=== PATIENT | male | born 1985 | race African-American/Black ===

== ENCOUNTER 2021-02-10 02:24 | Emergency (ER) | payer MEDICAID ==
[~2021-02-10] VITALS: Ht 170.2 cm; Wt 59.0 kg
[~2021-02-10 02:24] MED LIST: DILANTIN; FOLIC ACID; HYDROXYUREA
[2021-02-10 02:44] VITALS: BP 118/30
[2021-02-10] MEDS ORDERED: KETOROLAC 60MG/2ML VIAL IM ONE (02:45)
[2021-02-10] MEDS ORDERED: HYDROCODONE/ACETAMINOPHEN 10/325MG TABLET PO ONE (02:45)
[2021-02-10 03:01] LABS: HEMATOCRIT 26.2 % (42.0-52.0); HEMOGLOBIN 9.1 g/dL (14.0-18.0); MEAN CORPUSCULAR VOLUME 86.5 fL (80.0-94.0); PLATELET 476 x1000/uL (130-400); RED BLOOD CELL COUNT 3.03 mill/uL (4.7-6.1); RED CELL DISTRIBUTION WIDTH 20.2 % (11.6-14.6)
[2021-02-10 03:06] LABS: CHLORIDE 109 mEq/L (98-107)
== END 2021-02-10 03:13 | disposition home or self-care (01) ==
LOC: ER 02:24
DX: D57.00 Hb-SS disease with crisis, unspecified (principal); J45.909 Unspecified asthma, uncomplicated; F19.21 Other psychoactive substance dependence, in remission
CPT/HCPCS: 36415; 80053; 85027; 85044; 99283

== ENCOUNTER 2021-02-10 03:58 | Emergency (ER) | payer MEDICAID ==
[~2021-02-10] VITALS: Ht 177.8 cm; Wt 79.0 kg
[2021-02-10 04:00] VITALS: BP 148/68
== END 2021-02-10 04:33 | disposition home or self-care (01) ==
LOC: ER 04:23
DX: D57.00 Hb-SS disease with crisis, unspecified (principal); J45.909 Unspecified asthma, uncomplicated; F19.21 Other psychoactive substance dependence, in remission
CPT/HCPCS: 99283

== ENCOUNTER 2021-04-06 21:36 | Emergency (ER) | payer MEDICAID ==
[~2021-04-06] VITALS: Ht 172.7 cm; Wt 69.0 kg
[2021-04-06] MEDS ORDERED: KETOROLAC 30MG/ML VIAL IV STA (23:27)
[2021-04-06] MEDS ORDERED: SODIUM CHLORIDE 0.9% 1,000 ML IV ONE (23:30)
[2021-04-06 23:52] LABS: CHLORIDE 107 mEq/L (98-107)
[2021-04-07 00:01] LABS: HEMATOCRIT. 35.9 % (42.0-52.0); HEMOGLOBIN. 12.2 g/dL (14.0-18.0); MEAN CORPUSCULAR HEMOGLOBIN 30.2 pg (28.0-32.0); MEAN CORPUSCULAR VOLUME 88.8 fL (80.0-94.0); MEAN PLATELET VOLUME 7.8 fl (7.4-10.4); PLATELET 726 x1000/uL (130-400); RED BLOOD CELL COUNT 4.04 mill/uL (4.7-6.1); RED CELL DISTRIBUTION WIDTH 20.5 % (11.6-14.6)
[2021-04-07] MEDS ORDERED: ACETAMINOPHEN WITH CODEINE 300/30MG TABLET PO ONE (01:45)
[2021-04-07 01:53] LABS: PLATELET ESTIMATE MARKEDLY INCREASED
[2021-04-07 01:55] VITALS: BP 120/79
[2021-04-07] MEDS ORDERED: IBUP-2029 MT (03:34)
== END 2021-04-07 03:50 | disposition home or self-care (01) ==
LOC: ER 21:36
DX: D57.819 Other sickle-cell disorders with crisis, unspecified (principal); J45.909 Unspecified asthma, uncomplicated; Z88.5 Allergy status to narcotic agent
CPT/HCPCS: 36415; 80053; 85025; 85044; 96361; 96374; 99291; J1885; J7030

== ENCOUNTER 2021-04-14 04:29 | Emergency (ER) | payer MEDICAID ==
[~2021-04-14] VITALS: Ht 170.2 cm; Wt 68.0 kg
[~2021-04-14 04:29] MED LIST changes: +IBUP-2029 MT
[2021-04-14] MEDS ORDERED: ACETAMINOPHEN WITH CODEINE 300/30MG TABLET PO STA (05:35)
[2021-04-14] MEDS ORDERED: KETOROLAC 30MG/ML VIAL IV STA (05:35)
[2021-04-14] MEDS ORDERED: SODIUM CHLORIDE 0.9% 1,000 ML IV ONE (05:45)
[2021-04-14 06:11] LABS: BASOPHILS % 0.9 % (0.0-2.0); EOSINOPHILS % 0.6 % (0.0-5.0); HEMATOCRIT. 36.2 % (42.0-52.0); HEMOGLOBIN. 12.1 g/dL (14.0-18.0); LYMPHOCYTES % 27.4 % (20.0-50.0); MEAN CORPUSCULAR HEMOGLOBIN 30.1 pg (28.0-32.0); MEAN CORPUSCULAR VOLUME 90.3 fL (80.0-94.0); MEAN PLATELET VOLUME 7.7 fl (7.4-10.4); NEUTROPHILS % 63.1 % (40.0-76.0); PLATELET 637 x1000/uL (130-400); RED BLOOD CELL COUNT 4.01 mill/uL (4.7-6.1); RED CELL DISTRIBUTION WIDTH 19.6 % (11.6-14.6)
[2021-04-14 06:12] VITALS: BP 145/90
[2021-04-14 06:21] LABS: CHLORIDE 107 mEq/L (98-107)
[2021-04-14 06:25] LABS: ETHANOL BLOOD < 10 mg/dL
[2021-04-14 07:49] LABS: CLARITY URINE CLEAR (CLEAR); COLOR URINE YELLOW (YELLOW); KETONES URINE TRACE (NEGATIVE); LEUKOCYTE ESTERASE URINE NEGATIVE (NEGATIVE); NITRITE URINE NEGATIVE (NEGATIVE); OCCULT BLOOD URINE NEGATIVE (NEGATIVE); PROTEIN URINE 1+ (NEGATIVE); SPECIFIC GRAVITY URINE 1.015 (1.005-1.030)
[2021-04-14 08:16] LABS: *AMPHETAMINES SCREEN URINE PRESUMTIVE POSITIVE (NEGATIVE); *BARBITURATES SCREEN URINE NEGATIVE (NEGATIVE); CANNABINOID URINE SCREEN PRESUMTIVE POSITIVE (NEGATIVE)
[2021-04-14 08:17] LABS: *BENZODIAZEPINES SCREEN URINE NEGATIVE (NEGATIVE); *COCAINE SCREEN URINE NEGATIVE (NEGATIVE); METHADONE URINE SCREEN NEGATIVE (NEGATIVE); OPIATES URINE SCREEN PRESUMTIVE POSITIVE (NEGATIVE); PHENCYCLIDINE URINE SCREEN NEGATIVE (NEGATIVE)
== END 2021-04-14 09:41 | disposition left against medical advice (07) ==
LOC: ER 04:29
DX: M79.10 Myalgia, unspecified site (principal); F15.10 Other stimulant abuse, uncomplicated; F12.10 Cannabis abuse, uncomplicated; D57.1 Sickle-cell disease without crisis; J45.909 Unspecified asthma, uncomplicated; Z88.5 Allergy status to narcotic agent
CPT/HCPCS: 36415; 80048; 80305; 80320; 81003; 85025; 85044; 96361; 96374; 99283; J1885; J7030; G0480

== ENCOUNTER 2021-07-10 03:17 | Emergency (ER) | payer MEDICAID ==
[~2021-07-10] VITALS: Ht 170.2 cm; Wt 68.0 kg
[2021-07-10] MEDS ORDERED: KETOROLAC 30MG/ML VIAL IV STA (03:30)
[2021-07-10] MEDS ORDERED: SODIUM CHLORIDE 0.9% 1,000 ML IV ONE ×2 (03:30→05:30)
[2021-07-10 04:15] LABS: BASOPHILS % 0.7 % (0.0-2.0); EOSINOPHILS % 0.7 % (0.0-5.0); HEMATOCRIT. 27.5 % (42.0-52.0); HEMOGLOBIN. 9.8 g/dL (14.0-18.0); LYMPHOCYTES % 17.5 % (20.0-50.0); MEAN CORPUSCULAR HEMOGLOBIN 31.5 pg (28.0-32.0); MEAN CORPUSCULAR VOLUME 88.6 fL (80.0-94.0); MEAN PLATELET VOLUME 7.7 fl (7.4-10.4); MONOCYTES % 12.6 % (2.0-8.0); NEUTROPHILS % 68.5 % (40.0-76.0); PLATELET 459 x1000/uL (130-400); RED CELL DISTRIBUTION WIDTH 17.5 % (11.6-14.6)
[2021-07-10 04:17] LABS: CHLORIDE 107 mEq/L (98-107)
[2021-07-10] MEDS ORDERED: MORPHINE SULFATE 4 MG/ML CPJ (NOT FOR IM USE) IV STA (05:26)
[2021-07-10] MEDS ORDERED: DIPHENHYDRAMINE 25MG CAPSULE PO ONE (05:30)
[2021-07-10] MEDS ORDERED: IBUP-2029 MT (05:38)
[2021-07-10 06:29] VITALS: BP 121/71
== END 2021-07-10 08:04 | disposition home or self-care (01) ==
LOC: ER 03:22
DX: D57.818 Other sickle-cell disorders with crisis with other specified complication (principal); M79.18 Myalgia, other site; R06.02 Shortness of breath; J45.909 Unspecified asthma, uncomplicated; F17.290 Nicotine dependence, other tobacco product, uncomplicated
CPT/HCPCS: 36415; 71045; 80053; 85025; 85044; 96374; 96375; 99284; J1885; J2270; J7030; Q0163

== ENCOUNTER 2021-07-10 10:19 | Emergency (ER) | payer MEDICAID ==
[~2021-07-10] VITALS: Ht 170.2 cm; Wt 68.0 kg
[2021-07-10 10:28] VITALS: BP 132/66
[2021-07-10] MEDS ORDERED: ACETAMINOPHEN 325MG TABLET PO ONE (12:30)
[2021-07-10] MEDS ORDERED: KETOROLAC 60MG/2ML VIAL IM ONE (12:30)
== END 2021-07-10 13:21 | disposition home or self-care (01) ==
LOC: ER 10:19
DX: D57.819 Other sickle-cell disorders with crisis, unspecified (principal); J45.909 Unspecified asthma, uncomplicated; Z79.899 Other long term (current) drug therapy; Z20.822 Contact with and (suspected) exposure to COVID-19
CPT/HCPCS: 87426; 99283; J1885

== ENCOUNTER 2021-07-18 00:05 | Emergency (ER) | payer MEDICAID ==
[~2021-07-18] VITALS: Ht 175.3 cm; Wt 73.0 kg
[2021-07-18] MEDS ORDERED: KETOROLAC 30MG/ML VIAL IV STA (01:13)
[2021-07-18] MEDS ORDERED: SODIUM CHLORIDE 0.9% 1,000 ML IV ONE (01:15)
[2021-07-18 01:35] LABS: HEMATOCRIT. 31.3 % (42.0-52.0); HEMOGLOBIN. 10.7 g/dL (14.0-18.0); MEAN CORPUSCULAR HEMOGLOBIN 30.1 pg (28.0-32.0); MEAN CORPUSCULAR VOLUME 87.7 fL (80.0-94.0); MEAN PLATELET VOLUME 7.8 fl (7.4-10.4); PLATELET 607 x1000/uL (130-400); RED BLOOD CELL COUNT 3.56 mill/uL (4.7-6.1); RED CELL DISTRIBUTION WIDTH 16.1 % (11.6-14.6)
[2021-07-18 01:36] LABS: CHLORIDE 106 mEq/L (98-107)
[2021-07-18] MEDS ORDERED: MORPHINE SULFATE 4 MG/ML CPJ (NOT FOR IM USE) IV ONE (02:30)
[2021-07-18] MEDS ORDERED: DIPHENHYDRAMINE 50MG/ML VIAL IV ONE (02:30)
[2021-07-18 02:33] LABS: PLATELET ESTIMATE INCREASED
[2021-07-18 02:37] VITALS: BP 154/93
== END 2021-07-18 04:12 | disposition home or self-care (01) ==
LOC: ER 00:05
DX: D57.00 Hb-SS disease with crisis, unspecified (principal); R06.02 Shortness of breath; G89.29 Other chronic pain; M54.89 Other dorsalgia; M25.551 Pain in right hip
CPT/HCPCS: 36415; 71045; 80053; 85025; 85044; 96361; 96374; 96375; 99284; J1200; J1885; J2270; J7030